=== PATIENT | female | born 1980 | race Caucasian/White ===

== ENCOUNTER 2020-11-05 10:37 | Day surgery (SDC) | payer BC ==
[~2020-11-05 10:37] MED LIST: Acetaminophen 1,000 MG in Premix Bag 1 BAG IV PRN; Glycopyrrolate 0.2 MG/ML SDV ONE; Ketorolac 30 MG/ML SDV ONE; Lactated Ringers 1,000 ML IV SCH; Lidocaine 2% 5 ML SDV ONE; Midazolam 1 MG/ML 2 ML SDV ONE; Ondansetron 4 MG/2 ML SDV ONE; Propofol 200 MG/20 ML SDV ONE; fentaNYL 100 MCG/2 ML SDV IVPUSH PRN; fentaNYL 100 MCG/2 ML SDV ONE
--- NOTE | 2020-11-05 11:02 | PCM.PREANE ---
Preanesthetic Assessment - Anesthesia/Transfusion/Family Hx Anesthesia History: Prior Anesthesia Without Reaction Family History of Anesthesia Reaction: No Transfusion History: No Prior Transfusion(s) - Review of Systems General: No Symptoms Pulmonary: No Symptoms Cardiovascular: No Symptoms Gastrointestinal: No Symptoms Neurological: No Symptoms Other: Reports: None - Physical Assessment NPO Status Date: 11/05/20 NPO Status Time: 00:01 Height: 5 ft 3.75 in Weight: 203 lb ASA Class: 2 Mental Status: Alert & Oriented x3 Airway Class: Mallampati = 2 (\\hg) Dentition: Reports: Normal Dentition ROM/Head Extension: Full Lungs: Clear to Auscultation, Normal Respiratory Effort Cardiovascular: Regular Rate, Regular Rhythm - Allergies Allergies/Adverse Reactions: Allergies Allergy/AdvReac Type Severity Reaction Status Date / Time erythromycin base Allergy Nausea Verified 10/31/20 09:37 sulfadiazine Allergy Hives Verified 10/31/20 09:37 - Anesthesia Plan Pre-Op Medication Ordered: None - Acknowledgements Anesthesia Type Planned: General Anesthesia Pt an Appropriate Candidate for the Planned Anesthesia: Yes Alternatives and Risks of Anesthesia Discussed w Pt/Guardian: Yes Pt/Guardian Understands and Agrees with Anesthesia Plan: Yes Additional Comments: npo after mn depression anxiety PCOS no cv problems tob none etoh 1-2 drinks 4-5X a week par no questions PreAnesthesia Questionnaire HEENT History: Reports: None Cardiovascular History: Reports: None Respiratory History: Reports: None Gastrointestinal History: Reports: None Genitourinary History: Reports: None 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: Polycystic 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 Musculoskeletal History: Reports: Other (See Below) Other Musculoskeletal History: hx of compartment syndrome bilateral legs- from "working out too much" Neurological History: Reports: None Psychiatric History: Reports: Anxiety, Depression Endocrine/Metabolic History: Reports: Obesity/BMI 30+ Hematologic History: Reports: None Immunologic History: Reports: None Oncologic (Cancer) History: Reports: None Dermatologic History: Reports: None - Past Surgical History Head Surgeries/Procedures: Reports: None HEENT Surgical History: Reports: Oral Surgery Other HEENT Surgeries/Procedures: wisdom teeth removal Cardiovascular Surgical History: Reports: None Respiratory Surgical History: Reports: None GI Surgical History: Reports: None Female Surgical History: Reports: None Endocrine Surgical History: Reports: None Neurological Surgical History: Reports: None Musculoskeletal Surgical History: Reports: Other (See Below) Other Musculoskeletal Surgeries/Procedures:: fasciotomy left leg, multiple fasciotomies right leg Oncologic Surgical History: Reports: None - SUBSTANCE USE Tobacco Use Status *Q: Never Tobacco User Recreational Drug Use History: No - HOME MEDS Home Medications: Home Meds Levonorgestrel/Ethin.estradiol [Jolessa 0.15 mg-0.03 mg Tablet] 1 tab PO DAILY 10/31/20 [History] Venlafaxine [Effexor XR] 150 mg PO DAILY 10/31/20 [History] buPROPion HCL [Wellbutrin Xl] 150 mg PO DAILY 10/31/20 [History] - CURRENT (IN HOUSE) MEDS Current Meds: Current Medications Fentanyl (Fentanyl 100 Mcg/2 Ml Sdv) 50 mcg IVPUSH Q5M PRN PRN Reason: Pain Lactated Ringer's (Ringers, Lactated) 1,000 mls @ 125 mls/hr IV ASDIRECTED CUONG Acetaminophen 1,000 mg/ Premix 100 mls @ 400 mls/hr IV Q6H PRN PRN Reason: Pain Discontinued Medications Fentanyl (Fentanyl 100 Mcg/2 Ml Sdv) Confirm Administered Dose 100 mcg .ROUTE .STK-MED ONE Stop: 11/05/20 07:20 Glycopyrrolate (Glycopyrrolate 0.2 Mg/Ml Sdv) Confirm Administered Dose 0.2 mg .ROUTE .STK-MED ONE Stop: 11/05/20 07:20 Ketorolac Tromethamine (Ketorolac 30 Mg/Ml Sdv) Confirm Administered Dose 30 mg .ROUTE .STK-MED ONE Stop: 11/05/20 07:20 Lidocaine (Lidocaine 2% 5 Ml Sdv) Confirm Administered Dose 5 ml .ROUTE .STK-MED ONE Stop: 11/05/20 07:20 Midazolam HCl (Midazolam 1 Mg/Ml 2 Ml Sdv) Confirm Administered Dose 2 mg .ROUTE .STK-MED ONE Stop: 11/05/20 07:20 Ondansetron HCl (Ondansetron 4 Mg/2 Ml Sdv) Confirm Administered Dose 4 mg .ROUTE .STK-MED ONE Stop: 11/05/20 07:20 Propofol (Propofol 200 Mg/20 Ml Sdv) Confirm Administered Dose 200 mg .ROUTE .STK-MED ONE Stop: 11/05/20 07:20
--- NOTE | 2020-11-05 12:03 | PCM.OPNOTE ---
- General Post-Op/Procedure Note Date of Surgery/Procedure: 11/05/20 Operative Procedure(s): Loop electrical excision procedure Findings: Cervix did not appear to have any gross masses. Lugol's solution revealed areas of non-uptake from 6 o'clock to 9 o'clock and at 12 o'clock of the cervix. Pre Op Diagnosis: Cervical intraepithelial neoplasia, grade 2-3. Negative ECC Post-Op Diagnosis: Cervical intraepithelial neoplasia, grade 2-3. Negative ECC Anesthesia Technique: General LMA Primary Surgeon: Gloria Marks Anesthesia Provider: Kapil Laurent Pathology: Ectocervix with anterior and posterior portions. Endocervical specimen from top hat. Fluid Replacement, Intraop: 700 (crystalloid) EBL in mLs: 10 Complications: None known Condition: Good Free Text/Narrative:: Dictation #[id number]
--- NOTE | 2020-11-05 12:40 | PCM.POSTAN ---
POST ANESTHESIA ASSESSMENT - MENTAL STATUS Mental Status: Alert (no anesthetic problems), Oriented - VITAL SIGNS Vital Signs: Last Vital Signs Temp 98.4 F 11/05/20 12:12 Pulse 73 11/05/20 12:32 Resp 15 11/05/20 12:32 BP 140/80 11/05/20 12:32 Pulse Ox 98 11/05/20 12:32 - RESPIRATORY Respiratory Status: Respiratory Rate WNL, Airway Patent, O2 Saturation Stable - CARDIOVASCULAR CV Status: Pulse Rate WNL, Blood Pressure Stable - GASTROINTESTINAL GI Status: No Symptoms - POST OP HYDRATION Hydration Status: Adequate & Stable
--- NOTE | 2020-11-05 12:40 | PCM48HPAN ---
Post Anesthesia Note - EVALUATION WITHIN 48HRS OF ANESTHETIC Vital Signs in Normal Range: Yes Patient Participated in Evaluation: Yes Respiratory Function Stable: Yes Airway Patent: Yes Cardiovascular Function Stable: Yes Hydration Status Stable: Yes Pain Control Satisfactory: Yes Nausea and Vomiting Control Satisfactory: Yes Mental Status Recovered: Yes Vital Signs: Last Vital Signs Temp 98.4 F 11/05/20 12:12 Pulse 73 11/05/20 12:32 Resp 15 11/05/20 12:32 BP 140/80 11/05/20 12:32 Pulse Ox 98 11/05/20 12:32
--- NOTE | 2020-11-05 16:24 | OR ---
SURGEON: RILEY MARKS MD DATE OF PROCEDURE: 11/05/2020 PREOPERATIVE DIAGNOSES: 1. Cervical intraepithelial neoplasia, grade 2 to 3. 2. Negative endocervical curettage. POSTOPERATIVE DIAGNOSES: 1. Cervical intraepithelial neoplasia, grade 2 to 3. 2. Negative endocervical curettage. PROCEDURE PERFORMED: Loop electrosurgical excision procedure with top-hat. PRIMARY SURGEON: Riley Marks MD ANESTHESIA: LMA. INDICATIONS FOR PROCEDURE: The patient is a 40-year-old female with history of high-grade Pap smear. A colposcopy was performed and demonstrated ANISA 2 to 3 with negative ECC. PERTINENT FINDINGS: Cervix did not appear to have any gross masses. Lugol solution revealed areas of nonuptake from 6 o'clock to 9 o'clock and at 12 o'clock of the cervix. PATHOLOGY: Ectocervix with anterior and posterior portions, endocervical specimen from top- hat. ESTIMATED BLOOD LOSS: 10 mL. INTRAVENOUS FLUIDS: 100 mL of crystalloid during the procedure. DESCRIPTION OF PROCEDURE: The patient was taken to the operating room where she was placed under LMA without difficulty. She was then prepped and draped in the usual sterile fashion and placed in the dorsal lithotomy position. A coated open-sided Graves speculum was then placed into the vagina to visualize the cervix. Lugol solution was then painted along the entire cervix. Area of nonuptake were noted as above. Approximately 10 mL of 1% lidocaine with epinephrine was injected circumferentially along the cervix. A 20 mm x 10 mm loop electrode was then used to remove the posterior portion of the cervix, which was marked at the 6 o'clock position. A separate anterior specimen was excised and marked at the 12 o'clock position. A 10 mm x 4 mm square top-hat loop electrode was then used to excise the endocervix, and specimen was placed on Telfa pad and sent to Pathology. The bed of the excised cervical tissue along with the cervix was cauterized with a rollerball, and Monsel solution was placed over the excisional area. Hemostasis was noted. All instruments were then removed from the vagina. At this point, the patient tolerated the procedure well without complications. Sponge, lap, and needle counts were correct x2. The patient was taken to recovery in stable condition. MARORAC / MODL /[id number]
== END 2020-11-05 12:41 | disposition home or self-care (01) ==
LOC: MW.SDS 10:37
PROVIDERS: ATTEND Obstetrics & Gynecology
DX: D06.0 Carcinoma in situ of endocervix (principal); D06.7 Carcinoma in situ of other parts of cervix; E66.9 Obesity, unspecified; Z68.35 Body mass index [BMI] 35.0-35.9, adult; Z79.899 Other long term (current) drug therapy; Z88.2 Allergy status to sulfonamides; Z88.8 Allergy status to other drugs, medicaments and biological substances
CPT/HCPCS: 36415; 57522; 81025; 85027; 88305; J1885; J2250; J2405; J2704; J3490; J7120; 00940; J3010

== ENCOUNTER 2021-07-01 23:41 | Emergency (ER) | payer BC ==
[2021-07-02] MEDS ORDERED: Ketorolac 30 MG/ML SDV IM STA (00:52)
[2021-07-02] MEDS ORDERED: Cyclobenzaprine 10 MG Tab PO ONE (00:52)
--- NOTE | 2021-07-02 01:04 | EDM.PDOC ---
ED HPI GENERAL MEDICAL PROBLEM - General Chief Complaint: Back Pain or Injury Stated Complaint: BACK PAIN Time Seen by Provider: 07/02/21 00:05 - History of Present Illness INITIAL COMMENTS - FREE TEXT/NARRATIVE: CHIEF COMPLAINT(S): Back pain HISTORY OF PRESENT ILLNESS: This is a 41-year-old woman with a past medical history of chronic compartment syndrome status post bilateral fasciotomy in the past who comes to the emergency department with a chief complaint of back pain. The patient states that she was doing meditation for approximately 45 minutes while lying flat on the ground. She states that she started to then experience a spasm in her lower back. She states that she took ibuprofen and then laid down however the pain did not improve and the spasms continue to wear it took her approximately 45 minutes to get up off the ground. She denies any bowel incontinence, urinary incontinence, saddle anesthesia. She denies any numbness, tingling, or weakness. She denies any back injury. She rates this pain as i ntermittent and rated 9 out of 10. Ibuprofen did not help. Any movement seems to exacerbate the pain. She denies any IV drug use or fever. REVIEW OF SYSTEMS: Constitutional: Denies fever, chills. GI: Denies any bowel incontinence : Denies any urinary incontinence MSK: Positive for back pain Neurological: denies saddle anesthesia PAST MEDICAL HISTORY: As per history of present illness and as reviewed below otherwise noncontributory. SURGICAL HISTORY: As per history of present illness and as reviewed below otherwise noncontributory. SOCIAL HISTORY: As per history of present illness and as reviewed below otherwise noncontributory. FAMILY HISTORY: As per history of present illness and as reviewed below otherwise noncontributory. EXAMINATION OF ORGAN SYSTEMS/BODY AREAS: Constitutional: Blood pressure is 141/98, heart rate 95, respiratory rate 18 with an oxygen saturation of 97% on room air. Temperature 36.3 General: Well-appearing woman who is in no acute distress Psychiatric: Appropriate mood and affect. Eyes: No scleral icterus or conjunctival erythema Cardiovascular: Regular, rate, and rhythm. No gallops, murmurs, or rubs. Bilateral upper extremity pulses symmetric and intact. Respiratory: Lungs clear to auscultation bilaterally. No wheezes, rales, or rhonchi. Musculoskeletal: Normal range of motion. There was no midline cervical, thoracic, or lumbar tenderness. There is bilateral paraspinal muscle spasm and tenderness Skin: No lesions or abrasions. Neurological: Alert, GCS 15 strength and sensation grossly intact in upper and lower extremities bilaterally MEDICAL DECISION MAKING AND COURSE IN THE ED WITH INTERPRETATION/REVIEW OF DIAGNOSTIC STUDIES: This is a 41-year-old woman with a past medical history of chronic compartment syndrome of bilateral lower extremities status post fasciotomy who comes to the emergency department with what appears to be lumbar strain and musculoskeletal spasm without any red flag symptoms. At this time we will treat the patient with Toradol and Flexeril. I did discuss symptomatic treatment at home. She was given strict return precautions. The patient was amenable to discharge and had no further questions. DISPOSITION: The patient was discharged home in stable condition. The patient will follow up with primary care physician in 3 to 5 days CONDITION: Fair PROCEDURES: None FINAL IMPRESSION(S)/DIAGNOSES: 1. Acute lumbar strain/musculoskeletal spasm Andrzej Chavarria M.D. lower back Pain Score (Numeric/FACES): 9 - Related Data Allergies Allergy/AdvReac Type Severity Reaction Status Date / Time erythromycin base Allergy Nausea Verified 07/02/21 00:04 sulfadiazine Allergy Hives Verified 07/02/21 00:04 Home Meds: Home Meds Levonorgestrel/Ethin.estradiol [Jolessa 0.15 mg-0.03 mg Tablet] 1 tab PO DAILY 10/31/20 [History] Venlafaxine [Effexor XR] 150 mg PO DAILY 10/31/20 [History] buPROPion HCL [Wellbutrin Xl] 150 mg PO DAILY 10/31/20 [History] Acetaminophen [Tylenol Extra Strength] 1,000 mg PO Q6HR #56 tablet 07/02/21 [Rx] Ibuprofen 400 mg PO Q6HR #28 tablet 07/02/21 [Rx] methocarbamoL [Methocarbamol] 1,500 mg PO TID #42 tablet 07/02/21 [Rx] Past Medical History HEENT History: Reports: None Cardiovascular History: Reports: None Respiratory History: Reports: None Gastrointestinal History: Reports: None Genitourinary History: Reports: None 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: Polycystic Ovaries Musculoskeletal History: Reports: Other (See Below) Other Musculoskeletal History: hx of compartment syndrome bilateral legs- from "working out too much" Neurological History: Reports: None Psychiatric History: Reports: Anxiety, Depression Endocrine/Metabolic History: Reports: Obesity/BMI 30+ 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 Hematologic History: Reports: None Immunologic History: Reports: None Oncologic (Cancer) History: Reports: None Dermatologic History: Reports: None - Infectious Disease History Infectious Disease History: Reports: None - Past Surgical History Head Surgeries/Procedures: Reports: None HEENT Surgical History: Reports: Oral Surgery Cardiovascular Surgical History: Reports: None Respiratory Surgical History: Reports: None GI Surgical History: Reports: None Female Surgical History: Reports: None Endocrine Surgical History: Reports: None Neurological Surgical History: Reports: None Musculoskeletal Surgical History: Reports: Other (See Below) Other Musculoskeletal Surgeries/Procedures:: fasciotomy left leg, multiple fasciotomies right leg Oncologic Surgical History: Reports: None Social & Family History - Family History Family Medical History: No Pertinent Family History - Caffeine Use Caffeine Use: Reports: Coffee - Recreational Drug Use Recreational Drug Use: No ED ROS GENERAL - Review of Systems Review Of Systems: See Below ED EXAM, GENERAL - Physical Exam Exam: See Below Course - Vital Signs Last Recorded V/S: Last Vital Signs Temp 36.3 C 07/02/21 00:00 Pulse 94 07/02/21 01:15 Resp 18 07/02/21 01:15 BP 138/81 07/02/21 01:15 Pulse Ox 97 07/02/21 01:15 - Orders/Labs/Meds Meds: Medications Discontinued Medications Generic Name Dose Route Start Last Admin Trade Name Aidenq PRN Reason Stop Dose Admin Cyclobenzaprine HCl 10 mg 07/02/21 00:52 07/02/21 01:10 Cyclobenzaprine 10 Mg Tab PO 07/02/21 00:53 10 mg ONETIME ONE Administration Ketorolac Tromethamine 30 mg 07/02/21 00:52 07/02/21 01:09 Ketorolac 30 Mg/Ml Sdv IM 07/02/21 00:53 30 mg ONETIME STA Administration Departure - Departure Time of Disposition: 01:03 Disposition: Home, Self-Care 01 Condition: Fair Clinical Impression: Back spasm - Discharge Information *PRESCRIPTION DRUG MONITORING PROGRAM REVIEWED*: No *COPY OF PRESCRIPTION DRUG MONITORING REPORT IN PATIENT RUFINA: No Prescriptions: Ibuprofen 400 mg PO Q6HR #28 tablet methocarbamoL [Methocarbamol] 1,500 mg PO TID #42 tablet Acetaminophen [Tylenol Extra Strength] 1,000 mg PO Q6HR #56 tablet Instructions: Back Injury Prevention, [id number], Low Back Sprain or Strain Rehab-SportsMed, Lumbar Strain Referrals: Carlota Gross NP [Primary Care Provider] - Forms: ED Department Discharge Additional Instructions: You were evaluated today on an emergent basis. At this time I do believe you are experiencing back spasms and a strain of your lumbar back. I recommend you use a heating pad 15 to 20 minutes 4 times a day. I did prescribe you a prescription called Robaxin which can be used 3 times a day. I recommend you take it scheduled for the next week. In addition I would like you to use Tylenol and Motrin alternating for the next 2 days and then as needed after that. You may alternate with ice however heat seems to help muscle spasms greater. If you have any symptoms such as pain on yourself, defecating on yourself or you have a decrease sensation after you use #2 I would like you to return to the emergency department. Please follow-up with your primary care physician in 3 to 5 days. Please use: Tylenol 500-1000mg every 6 hours (DO NOT TAKE MORE THAN 4000mg in 1 day) Ibuprofen 400mg every 6 hours (Take with food as it can cause ulcers, GI upset) Example schedule: 8:00 AM (Tylenol 500-1000mg) 11:00 AM (Ibuprofen 400mg) 2:00 PM (Tylenol 500-1000mg) 5:00 PM (Ibuprofen 400mg) In addition to Tylenol and Motrin you may use over the counter creams such as Voltaren Cream or Lidocaine Cream (Lidoderm) as needed 4 times a day for symptom atic relief. Ice the area 20 minutes 4 times per day [facility] [address] [place] [id number] [id number] The patient is informed of any results of their evaluation and diagnostic workup and all questions are answered. They are given discharge instructions and return precautions. The patient is stable for discharge. The patient states they understand and agree with the plan and that they will return if their symptoms get worse or if they have any new concerns. The following information is given to patients seen in the emergency department who are being discharged to home. This information is to outline your options for follow-up care. We provide all patients seen in our emergency department with a follow-up referral. The need for follow-up, as well as the timing and circumstances, are variable depending upon the specifics of your emergency department visit. If you don't have a primary care physician on staff, we will provide you with a referral. We always advise you to contact your personal physician following an emergency department visit to inform them of the circumstance of the visit and for follow-up with them and/or the need for any referrals to a consulting specialist. The emergency department will also refer you to a specialist when appropriate. This referral assures that you have the opportunity for follow-up care with a specialist. All of these measure are taken in an effort to provide you with optimal care, which includes your follow-up. Under all circumstances we always encourage you to contact your private physician who remains a resource for coordinating your care. When calling for follow-up care, please make the office aware that this follow-up is from your recent emergency room visit. If for any reason you are refused follow-up, please contact the [facility] Emergency Department at and asked to speak to the emergency department charge nurse. Sepsis Event Note (ED) - Evaluation Sepsis Screening Result: No Definite Risk - Focused Exam Vital Signs: Vital Signs Temp Pulse Resp BP Pulse Ox 07/02/21 01:15 94 18 138/81 97 07/02/21 00:00 36.3 C 95 18 141/98 H 97
== END 2021-07-02 01:16 | disposition home or self-care (01) ==
LOC: MW.ED 23:41
DX: S39.012A Strain of muscle, fascia and tendon of lower back, initial encounter (principal); M62.830 Muscle spasm of back; E66.9 Obesity, unspecified; Z68.36 Body mass index [BMI] 36.0-36.9, adult; Z88.1 Allergy status to other antibiotic agents; Z88.2 Allergy status to sulfonamides; X50.1XXA Overexertion from prolonged static or awkward postures, initial encounter
CPT/HCPCS: 96372; 99283; A9270; J1885